=== PATIENT | female | born 1930 | race Caucasian/White ===

== ENCOUNTER 2019-10-17 20:50 | Inpatient (IN) | payer MEDICARE ==
[~2019-10-17] VITALS: Ht 157.5 cm; Wt 65.0 kg
--- NOTE | 2019-10-17 21:54 | NUR ---
PT AMBULATED WITH CANE FROM LOBBY TO ROOM WITHOUT DIFFICULTY. SHE WAS OFFERED A WHEELCHAIR BUT DECLINED.
[2019-10-17 22:26] LABS: BASOPHILS % (AUTO) 0.7 % (0-1); EOSINOPHILS # (AUTO) 0.1 X10'3 (0-0.9); EOSINOPHILS % (AUTO) 2.2 % (0-6); HEMATOCRIT 31.7 % (35.0-45.0); HEMOGLOBIN 10.6 g/dl (12.0-16.0); LYMPHOCYTES # (AUTO) 0.9 X10'3 (1.1-4.8); LYMPHOCYTES % (AUTO) 20.1 % (21-51); MEAN CORPUSCULAR HEMOGLOBIN 33.1 PG (27.0-31.0); MEAN CORPUSCULAR HGB CONC 33.5 g/dL (33.0-36.5); MEAN CORPUSCULAR VOLUME 98.8 FL (78-98); MEAN PLATELET VOLUME 7.8 FL (7.4-10.4); MONOCYTES # (AUTO) 0.4 X10'3 (0-0.9); MONOCYTES % (AUTO) 8.6 % (2-12); NEUTROPHILS # (AUTO) 3.2 X10'3 (1.8-7.7); NEUTROPHILS % (AUTO) 68.4 % (42-75); PLATELET COUNT 250 X10'3 (140-440); RED BLOOD COUNT 3.21 X10'6 (4.20-5.60); RED CELL DISTRIBUTION WIDTH 16.2 % (11.5-14.5); WHITE BLOOD COUNT 4.6 X10'3 (4.5-11.0)
[2019-10-17 22:31] LABS: ALANINE AMINOTRANSFERASE 23 U/L (12-78); ALBUMIN 3.8 G/DL (3.4-5.0); ALBUMIN/GLOBULIN RATIO 0.9 (1.1-1.5); ALKALINE PHOSPHATASE 82 IU/L (46-116); ANION GAP 9 (8-16); ASPARTATE AMINO TRANSFERASE 29 U/L (10-37); BILIRUBIN,TOTAL 0.5 MG/DL (0.1-1.0); BLOOD UREA NITROGEN 24 MG/DL (7-18); BUN/CREATININE RATIO 15.2 (6.6-38.0); CALCIUM 8.7 MG/DL (8.5-10.1); CHLORIDE 105 MMOL/L (99-107); CREATININE 1.58 MG/DL (0.40-0.90); GLUCOSE 94 MG/DL (70-104); POTASSIUM 3.7 MMOL/L (3.5-5.1); SODIUM 141 MMOL/L (135-145); TOTAL CARBON DIOXIDE 26.6 MMOL/L (24-32); TOTAL PROTEIN 8.2 G/DL (6.4-8.2); eGFR 31 ML/MIN
[2019-10-17] MEDS ORDERED: furosemide 10 MG/1 ML 10ml inj IV ONE (22:50)
[2019-10-17] MEDS ORDERED: ALLO100T PO (23:11)
[2019-10-17] MEDS ORDERED: METO-395 PO (23:11)
[2019-10-17] MEDS ORDERED: HYDR200T84 PO (23:11)
[2019-10-17] MEDS ORDERED: CALC0.2511 PO (23:11)
[2019-10-17] MEDS ORDERED: WARF-55 PO (23:11)
[2019-10-17] MEDS ORDERED: ASPI-1265 PO (23:11)
[2019-10-17] MEDS ORDERED: FURO-150 PO (23:11)
[2019-10-17] MEDS ORDERED: magnesium 4gm in 100ml NS 100 ML IV PRN (23:45)
[2019-10-17] MEDS ORDERED: mag hydrox/Alum hydrox/simeth 30ml oral suspension PO PRN (23:45)
[2019-10-17] MEDS ORDERED: bumetanide 0.25mg/ml 4ml vial IV ONE (23:45)
[2019-10-17] MEDS ORDERED: magnesium hydroxide 30ml (MOM) UD suspension PO PRN (23:45)
[2019-10-17] MEDS ORDERED: ondansetron/PF 4mg/2ml inj IV PRN (23:45)
[2019-10-17] MEDS ORDERED: acetaminophen 325mg tablet PO PRN (23:45)
[2019-10-17] MEDS ORDERED: potassium Cl 20 mEq SR tablet PO PRN (23:45)
[2019-10-17] MEDS ORDERED: potassium CL 10mEq/100ml bag 100 ML IV PRN ×2 (23:45)
[2019-10-17] MEDS ORDERED: magnesium Cl slow-release 64mg tablet PO PRN (23:45)
[2019-10-17] MEDS ORDERED: magnesium 2GM in 50ml NS 50 ML IV PRN (23:45)
[2019-10-17] MEDS ORDERED: BUMETANIDE 0.25 MG/ML IV ONE (23:55)
--- NOTE | 2019-10-18 00:25 | NUR ---
Patient in room ORTHO 4023. I have received report from Baljit RODRIGUEZ and had the opportunity to ask questions and assume patient care.
[2019-10-18 00:34] VITALS: BP 152/70
--- NOTE | 2019-10-18 00:37 | NUR ---
Problems reprioritized. Patient report given, questions answered & plan of care reviewed with Yaneth RODRIGUEZ.
--- NOTE | 2019-10-18 00:54 | NUR ---
The troponins were not drawn on the med Surg floor because no order from the admitting MD to continue the ED Troponins.
--- NOTE | 2019-10-18 01:48 | NUR ---
Pt arrived via gurney and one attendant, is admitted to Ortho floor, settled in and comfortable. Pt ambulates with personal cane and has been to bathroom x3 while admitting.
[2019-10-18 02:00] VITALS: BP 133/63
[2019-10-18 06:00] VITALS: BP 125/50
--- NOTE | 2019-10-18 06:21 | NUR ---
REPORT GIVEN TO JENNIFER GARDNER.
--- NOTE | 2019-10-18 06:25 | NUR ---
Patient in room ORTHO 4023. I have received report from CINDY RODRIGUEZ and had the opportunity to ask questions and assume patient care.
[2019-10-18 07:36] LABS: BASOPHILS % (AUTO) 0.6 % (0-1); EOSINOPHILS # (AUTO) 0.1 X10'3 (0-0.9); EOSINOPHILS % (AUTO) 1.8 % (0-6); HEMATOCRIT 29.7 % (35.0-45.0); HEMOGLOBIN 10.1 g/dl (12.0-16.0); LYMPHOCYTES # (AUTO) 0.6 X10'3 (1.1-4.8); LYMPHOCYTES % (AUTO) 13.8 % (21-51); MEAN CORPUSCULAR HEMOGLOBIN 33.8 PG (27.0-31.0); MEAN CORPUSCULAR HGB CONC 34.1 g/dL (33.0-36.5); MEAN CORPUSCULAR VOLUME 99.1 FL (78-98); MEAN PLATELET VOLUME 7.8 FL (7.4-10.4); MONOCYTES # (AUTO) 0.3 X10'3 (0-0.9); MONOCYTES % (AUTO) 8.2 % (2-12); NEUTROPHILS # (AUTO) 3.2 X10'3 (1.8-7.7); NEUTROPHILS % (AUTO) 75.6 % (42-75); PLATELET COUNT 225 X10'3 (140-440); RED CELL DISTRIBUTION WIDTH 15.8 % (11.5-14.5); WHITE BLOOD COUNT 4.2 X10'3 (4.5-11.0)
[2019-10-18 07:48] LABS: ALANINE AMINOTRANSFERASE 20 U/L (12-78); ALBUMIN 3.3 G/DL (3.4-5.0); ALBUMIN/GLOBULIN RATIO 0.8 (1.1-1.5); ALKALINE PHOSPHATASE 74 IU/L (46-116); ANION GAP 10 (8-16); ASPARTATE AMINO TRANSFERASE 25 U/L (10-37); BILIRUBIN,TOTAL 0.4 MG/DL (0.1-1.0); BLOOD UREA NITROGEN 24 MG/DL (7-18); BUN/CREATININE RATIO 17.1 (6.6-38.0); CALCIUM 8.4 MG/DL (8.5-10.1); CHLORIDE 106 MMOL/L (99-107); GLUCOSE 100 MG/DL (70-104); MAGNESIUM 2.1 MG/DL (1.5-2.4); POTASSIUM 3.1 MMOL/L (3.5-5.1); SODIUM 144 MMOL/L (135-145); TOTAL CARBON DIOXIDE 28.2 MMOL/L (24-32); TOTAL PROTEIN 7.5 G/DL (6.4-8.2); eGFR 36 ML/MIN
[2019-10-18] MEDS ORDERED: BUMETANIDE 0.25 MG/ML IV SCH (08:00)
[2019-10-18] MEDS ORDERED: warfarin 5mg tablet PO SCH (08:00)
[2019-10-18] MEDS ORDERED: hydroxychloroquine 200mg tablet PO SCH (08:00)
[2019-10-18] MEDS: K and/or MAG REPLACEMENT MC SCH ×2 (08:00→20:00)
[2019-10-18] MEDS: metoprolol succinate 25mg (24-HOUR) SR. Tablet PO SCH ×2 (09:16→21:02)
[2019-10-18] MEDS: calcitriol 0.25mcg capsule PO SCH (09:16)
[2019-10-18] MEDS: aspirin 81mg tab.chew PO SCH (09:16)
[2019-10-18] MEDS: allopurinol 300 MG tablet PO SCH (09:16)
[2019-10-18] MEDS: potassium Cl 20 mEq SR tablet PO PRN ×4 (09:17→21:13)
[2019-10-18 10:00] VITALS: BP 120/63
[2019-10-18] MEDS ORDERED: BUMETANIDE 0.25 MG/ML IV ONE (10:15)
[2019-10-18] MEDS: hydroxychloroquine 200mg tablet PO SCH ×2 (11:58→21:03)
[2019-10-18 18:00] VITALS: BP 113/55
--- NOTE | 2019-10-18 18:11 | NUR ---
Problems reprioritized. Patient report given, questions answered & plan of care reviewed with Kaitlyn RODRIGUEZ .
--- NOTE | 2019-10-18 18:15 | NUR ---
Patient in room ORTHO 4023. I have received report from Zaria RODRIGUEZ and had the opportunity to ask questions and assume patient care.
[2019-10-18] MEDS ORDERED: warfarin 5mg tablet PO ONE (21:00)
[2019-10-18 22:00] VITALS: BP 110/52
--- NOTE | 2019-10-19 01:30 | NUR ---
24 hr tele removed
[2019-10-19 06:00] VITALS: BP 122/62
--- NOTE | 2019-10-19 06:15 | NUR ---
Problems reprioritized. Patient report given, questions answered & plan of care reviewed with Yojana RODRIGUEZ.
[2019-10-19 07:26] LABS: BASOPHILS % (AUTO) 0.8 % (0-1); EOSINOPHILS # (AUTO) 0.1 X10'3 (0-0.9); EOSINOPHILS % (AUTO) 3.3 % (0-6); HEMATOCRIT 28.1 % (35.0-45.0); HEMOGLOBIN 9.5 g/dl (12.0-16.0); LYMPHOCYTES # (AUTO) 0.9 X10'3 (1.1-4.8); LYMPHOCYTES % (AUTO) 25.1 % (21-51); MEAN CORPUSCULAR HEMOGLOBIN 33.4 PG (27.0-31.0); MEAN CORPUSCULAR HGB CONC 33.8 g/dL (33.0-36.5); MEAN CORPUSCULAR VOLUME 99.1 FL (78-98); MONOCYTES # (AUTO) 0.4 X10'3 (0-0.9); MONOCYTES % (AUTO) 11.8 % (2-12); PLATELET COUNT 211 X10'3 (140-440); RED BLOOD COUNT 2.84 X10'6 (4.20-5.60); RED CELL DISTRIBUTION WIDTH 15.7 % (11.5-14.5); WHITE BLOOD COUNT 3.5 X10'3 (4.5-11.0)
[2019-10-19 07:51] LABS: ALANINE AMINOTRANSFERASE 19 U/L (12-78); ALBUMIN/GLOBULIN RATIO 0.8 (1.1-1.5); ALKALINE PHOSPHATASE 60 IU/L (46-116); ANION GAP 6 (8-16); ASPARTATE AMINO TRANSFERASE 25 U/L (10-37); BILIRUBIN,TOTAL 0.4 MG/DL (0.1-1.0); BLOOD UREA NITROGEN 29 MG/DL (7-18); BUN/CREATININE RATIO 19.1 (6.6-38.0); CALCIUM 8.3 MG/DL (8.5-10.1); CHLORIDE 108 MMOL/L (99-107); CREATININE 1.52 MG/DL (0.40-0.90); GLUCOSE 81 MG/DL (70-104); MAGNESIUM 2.1 MG/DL (1.5-2.4); POTASSIUM 4.7 MMOL/L (3.5-5.1); SODIUM 141 MMOL/L (135-145); TOTAL CARBON DIOXIDE 27.4 MMOL/L (24-32); TOTAL PROTEIN 6.8 G/DL (6.4-8.2); eGFR 32 ML/MIN
[2019-10-19] MEDS: K and/or MAG REPLACEMENT MC SCH ×2 (08:00→20:00)
[2019-10-19] MEDS: allopurinol 300 MG tablet PO SCH (08:00)
[2019-10-19] MEDS: aspirin 81mg tab.chew PO SCH (08:00)
[2019-10-19] MEDS: hydroxychloroquine 200mg tablet PO SCH ×2 (08:00→21:42)
[2019-10-19] MEDS: calcitriol 0.25mcg capsule PO SCH (08:00)
[2019-10-19] MEDS: metoprolol succinate 25mg (24-HOUR) SR. Tablet PO SCH ×2 (08:01→21:47)
[2019-10-19] MEDS: BUMETANIDE 0.25 MG/ML IV SCH (09:16)
[2019-10-19 10:00] VITALS: BP 111/53
[2019-10-19 18:00] VITALS: BP 112/44
--- NOTE | 2019-10-19 18:15 | NUR ---
Patient in room ORTHO 4023. I have received report from Isabelle RODRIGUEZ and had the opportunity to ask questions and assume patient care.
--- NOTE | 2019-10-19 18:17 | NUR ---
Problems reprioritized. Patient report given, questions answered & plan of care reviewed with Ilir RODRIGUEZ.
[2019-10-19] MEDS ORDERED: warfarin 5mg tablet PO ONE (21:00)
[2019-10-19 22:00] VITALS: BP 128/55
[2019-10-20 06:00] VITALS: BP 106/53
--- NOTE | 2019-10-20 06:29 | NUR ---
Problems reprioritized. Patient report given, questions answered & plan of care reviewed with Armida RODRIGUEZ.
[2019-10-20 06:34] LABS: BASOPHILS % (AUTO) 0.9 % (0-1); EOSINOPHILS # (AUTO) 0.1 X10'3 (0-0.9); EOSINOPHILS % (AUTO) 3.8 % (0-6); HEMATOCRIT 28.1 % (35.0-45.0); HEMOGLOBIN 9.6 g/dl (12.0-16.0); LYMPHOCYTES # (AUTO) 0.9 X10'3 (1.1-4.8); LYMPHOCYTES % (AUTO) 25.4 % (21-51); MEAN CORPUSCULAR HEMOGLOBIN 34.2 PG (27.0-31.0); MEAN CORPUSCULAR HGB CONC 34.2 g/dL (33.0-36.5); MONOCYTES # (AUTO) 0.4 X10'3 (0-0.9); MONOCYTES % (AUTO) 10.7 % (2-12); NEUTROPHILS # (AUTO) 2.1 X10'3 (1.8-7.7); NEUTROPHILS % (AUTO) 59.2 % (42-75); PLATELET COUNT 189 X10'3 (140-440); RED BLOOD COUNT 2.81 X10'6 (4.20-5.60); RED CELL DISTRIBUTION WIDTH 15.9 % (11.5-14.5); WHITE BLOOD COUNT 3.6 X10'3 (4.5-11.0)
[2019-10-20 06:54] LABS: ALANINE AMINOTRANSFERASE 19 U/L (12-78); ALBUMIN/GLOBULIN RATIO 0.9 (1.1-1.5); ALKALINE PHOSPHATASE 63 IU/L (46-116); ANION GAP 8 (8-16); ASPARTATE AMINO TRANSFERASE 24 U/L (10-37); BILIRUBIN,TOTAL 0.4 MG/DL (0.1-1.0); BLOOD UREA NITROGEN 33 MG/DL (7-18); BUN/CREATININE RATIO 25.2 (6.6-38.0); CALCIUM 8.7 MG/DL (8.5-10.1); CHLORIDE 107 MMOL/L (99-107); CREATININE 1.31 MG/DL (0.40-0.90); GLUCOSE 78 MG/DL (70-104); POTASSIUM 4.3 MMOL/L (3.5-5.1); SODIUM 140 MMOL/L (135-145); TOTAL CARBON DIOXIDE 25.2 MMOL/L (24-32); TOTAL PROTEIN 6.5 G/DL (6.4-8.2); eGFR 38 ML/MIN
[2019-10-20] MEDS: hydroxychloroquine 200mg tablet PO SCH (07:43)
[2019-10-20] MEDS: allopurinol 300 MG tablet PO SCH (07:43)
[2019-10-20] MEDS: calcitriol 0.25mcg capsule PO SCH (07:44)
[2019-10-20] MEDS: aspirin 81mg tab.chew PO SCH (07:44)
[2019-10-20] MEDS: metoprolol succinate 25mg (24-HOUR) SR. Tablet PO SCH (07:44)
[2019-10-20] MEDS: BUMETANIDE 0.25 MG/ML IV SCH (07:49)
[2019-10-20] MEDS: K and/or MAG REPLACEMENT MC SCH (08:00)
[2019-10-20 10:00] VITALS: BP 132/62
[2019-10-20] MEDS ORDERED: BUME0.5T6 PO (10:16)
--- NOTE | 2019-10-20 11:16 | NUR ---
Discharge instructions given to patient. PIV removed, cannula intact. Prescription called to [facility] on [address]. Patient has an appointment with dental office assistant on .
[2019-10-20] MEDS ORDERED: warfarin 3mg tablet PO ONE (21:00)
--- NOTE | 2019-10-23 13:04 | NUR ---
Case Management DC follow up: Spoke to pt via telephone. s/p: SOB, CHF Reports: "doing great, I had excellent care" Denies: worsening/acute SOB, resp distress, acute/persistent CP, CAR[place]O, blurry vision, N/V, emergent general pain, abd tenderness or distention, vertigo, syncope, fever, unexplained bruising, bleeding. Verbalizes understanding of s/s that would warrant 9-11/ER visit for further evaluation. Verbalizes understanding of new Rx/Bumetanide r/t edema & why prescribed; resume current Rx, taking as ordered, no ase noted r/t polypharmacy. Acknowledges need to follow-up/keep appts w/PCP/Dunia Salgado, will call to schedule, Lianna/10/25/19. Questions answered, needs met at [place]. No further questions at this time.
== END 2019-10-20 11:30 | disposition home or self-care (01) | DRG 292 ==
LOC: ER 20:51 → ED HOLD 23:41 → UNDOADMIN 10-18 00:17 → ED HOLD 10-18 00:30 → ORTHO 4S 10-18 00:30
PROVIDERS: ADMIT Internal Medicine; ATTEND Family Medicine
DX: I50.33 Acute on chronic diastolic (congestive) heart failure (principal); I48.20 Chronic atrial fibrillation, unspecified; J44.9 Chronic obstructive pulmonary disease, unspecified; Z88.0 Allergy status to penicillin; D50.9 Iron deficiency anemia, unspecified; I25.10 Atherosclerotic heart disease of native coronary artery without angina pectoris; Z95.5 Presence of coronary angioplasty implant and graft; Z90.49 Acquired absence of other specified parts of digestive tract; Z85.038 Personal history of other malignant neoplasm of large intestine; Z90.710 Acquired absence of both cervix and uterus; M06.9 Rheumatoid arthritis, unspecified; E87.6 Hypokalemia; Z66 Do not resuscitate; N18.9 Chronic kidney disease, unspecified; Z95.0 Presence of cardiac pacemaker
CPT/HCPCS: 36415; 71045; 80053; 83735; 83880; 84484; 85025; 85610; 87081; 93005; 93306; 96374; 96375; 97112; 97116; 97161; 97530; 99285; G0378; J1940

== ENCOUNTER 2019-12-14 16:51 | Inpatient (IN) | payer MEDICARE ==
[~2019-12-14] VITALS: Ht 154.9 cm; Wt 71.0 kg
[~2019-12-14 16:51] MED LIST: ALLO100T PO; ASPI-1265 PO; BUME0.5T6 PO; CALC0.2511 PO; HYDR200T84 PO; METO-395 PO; WARF-55 PO
[2019-12-14 18:01] LABS: BASOPHILS % (AUTO) 0.6 % (0-1); EOSINOPHILS # (AUTO) 0.1 X10'3 (0-0.9); EOSINOPHILS % (AUTO) 1.8 % (0-6); HEMATOCRIT 28.1 % (35.0-45.0); HEMOGLOBIN 9.2 g/dl (12.0-16.0); LYMPHOCYTES # (AUTO) 0.8 X10'3 (1.1-4.8); LYMPHOCYTES % (AUTO) 16.9 % (21-51); MEAN CORPUSCULAR HGB CONC 32.8 g/dL (33.0-36.5); MEAN CORPUSCULAR VOLUME 97.4 FL (78-98); MEAN PLATELET VOLUME 8.3 FL (7.4-10.4); MONOCYTES # (AUTO) 0.4 X10'3 (0-0.9); MONOCYTES % (AUTO) 8.7 % (2-12); NEUTROPHILS # (AUTO) 3.2 X10'3 (1.8-7.7); PLATELET COUNT 170 X10'3 (140-440); RED BLOOD COUNT 2.88 X10'6 (4.20-5.60); RED CELL DISTRIBUTION WIDTH 18.8 % (11.5-14.5); WHITE BLOOD COUNT 4.5 X10'3 (4.5-11.0)
[2019-12-14 18:10] LABS: ALANINE AMINOTRANSFERASE 16 U/L (12-78); ALBUMIN 3.3 G/DL (3.4-5.0); ALBUMIN/GLOBULIN RATIO 0.8 (1.1-1.5); ALKALINE PHOSPHATASE 203 IU/L (46-116); ANION GAP 6 (8-16); ASPARTATE AMINO TRANSFERASE 29 U/L (10-37); BLOOD UREA NITROGEN 20 MG/DL (7-18); BUN/CREATININE RATIO 13.6 (6.6-38.0); CALCIUM 8.4 MG/DL (8.5-10.1); CHLORIDE 100 MMOL/L (99-107); CREATININE 1.47 MG/DL (0.40-0.90); GLUCOSE 111 MG/DL (70-104); POTASSIUM 3.3 MMOL/L (3.5-5.1); SODIUM 135 MMOL/L (135-145); TOTAL CARBON DIOXIDE 28.7 MMOL/L (24-32); TOTAL PROTEIN 7.7 G/DL (6.4-8.2); eGFR 34 ML/MIN
[2019-12-14] MEDS ORDERED: BUME0.5T6 PO (18:45)
[2019-12-14] MEDS ORDERED: furosemide 10 MG/1 ML 10ml inj IV ONE (18:50)
[2019-12-14] MEDS ORDERED: AMLO5TAB95 PO (18:53)
[2019-12-14] MEDS ORDERED: mag hydrox/Alum hydrox/simeth 30ml oral suspension PO PRN (19:45)
[2019-12-14] MEDS ORDERED: magnesium 4gm in 100ml NS 100 ML IV PRN (19:45)
[2019-12-14] MEDS ORDERED: ondansetron/PF 4mg/2ml inj IV PRN (19:45)
[2019-12-14] MEDS ORDERED: potassium Cl 20 mEq SR tablet PO PRN (19:45)
[2019-12-14] MEDS ORDERED: magnesium 2GM in 50ml NS 50 ML IV PRN (19:45)
[2019-12-14] MEDS ORDERED: acetaminophen 325mg tablet PO PRN ×2 (19:45)
[2019-12-14] MEDS ORDERED: magnesium Cl slow-release 64mg tablet PO PRN (19:45)
[2019-12-14] MEDS ORDERED: docusate sod 100mg capsule PO PRN (19:45)
[2019-12-14] MEDS ORDERED: potassium CL 10mEq/100ml bag 100 ML IV PRN ×2 (19:45)
[2019-12-14] MEDS ORDERED: bumetanide 1mg tablet PO SCH ×2 (20:00)
[2019-12-14] MEDS: K and/or MAG REPLACEMENT MC SCH (20:00)
[2019-12-14] MEDS: metoprolol succinate 25mg (24-HOUR) SR. Tablet PO SCH (20:39)
[2019-12-14] MEDS: potassium Cl 20 mEq SR tablet PO PRN (20:39)
[2019-12-14] MEDS: HYDROcodone/acetaminophen 10/325mg tab PO PRN (20:41)
[2019-12-14] MEDS ORDERED: warfarin 5mg tablet PO ONE (21:00)
[2019-12-14 22:00] VITALS: BP 122/63
--- NOTE | 2019-12-14 23:13 | NUR ---
Patient arrived on the floor at 2200 from ER. Alert, oriented x4. Not at any distress.
[2019-12-15] MEDS: HYDROcodone/acetaminophen 10/325mg tab PO PRN ×3 (01:42→23:18)
[2019-12-15 02:00] VITALS: BP 107/56
[2019-12-15 05:24] LABS: BASOPHILS % (AUTO) 0.9 % (0-1); EOSINOPHILS # (AUTO) 0.1 X10'3 (0-0.9); EOSINOPHILS % (AUTO) 2.8 % (0-6); HEMATOCRIT 24.5 % (35.0-45.0); HEMOGLOBIN 8.1 g/dl (12.0-16.0); LYMPHOCYTES # (AUTO) 0.7 X10'3 (1.1-4.8); LYMPHOCYTES % (AUTO) 22.1 % (21-51); MEAN CORPUSCULAR VOLUME 96.9 FL (78-98); MEAN PLATELET VOLUME 8.7 FL (7.4-10.4); MONOCYTES # (AUTO) 0.4 X10'3 (0-0.9); MONOCYTES % (AUTO) 10.9 % (2-12); NEUTROPHILS # (AUTO) 2.1 X10'3 (1.8-7.7); NEUTROPHILS % (AUTO) 63.3 % (42-75); PLATELET COUNT 141 X10'3 (140-440); RED BLOOD COUNT 2.53 X10'6 (4.20-5.60); WHITE BLOOD COUNT 3.3 X10'3 (4.5-11.0)
[2019-12-15 05:33] LABS: ALANINE AMINOTRANSFERASE 14 U/L (12-78); ALBUMIN 2.8 G/DL (3.4-5.0); ALBUMIN/GLOBULIN RATIO 0.7 (1.1-1.5); ALKALINE PHOSPHATASE 154 IU/L (46-116); ANION GAP 6 (8-16); ASPARTATE AMINO TRANSFERASE 27 U/L (10-37); BILIRUBIN,TOTAL 0.9 MG/DL (0.1-1.0); BLOOD UREA NITROGEN 18 MG/DL (7-18); BUN/CREATININE RATIO 15.5 (6.6-38.0); CALCIUM 7.9 MG/DL (8.5-10.1); CHLORIDE 104 MMOL/L (99-107); CREATININE 1.16 MG/DL (0.40-0.90); GLUCOSE 82 MG/DL (70-104); MAGNESIUM 1.9 MG/DL (1.5-2.4); POTASSIUM 3.4 MMOL/L (3.5-5.1); SODIUM 139 MMOL/L (135-145); TOTAL CARBON DIOXIDE 28.8 MMOL/L (24-32); TOTAL PROTEIN 6.6 G/DL (6.4-8.2); eGFR 44 ML/MIN
--- NOTE | 2019-12-15 06:12 | NUR ---
Problems reprioritized. Patient report given Dian STEWART, questions answered & plan of care reviewed with .
[2019-12-15 06:15] LABS: ACANTHOCYTES FEW; ANISOCYTOSIS 2+; ELLIPTOCYTES FEW; PLATELET ESTIMATE NORMAL; POLYCHROMASIA FEW
--- NOTE | 2019-12-15 06:30 | NUR ---
Patient in room PCU 3026. I have received report from Azul RODRIGUEZ and had the opportunity to ask questions and assume patient care.
[2019-12-15 07:00] VITALS: BP 110/54
[2019-12-15] MEDS: furosemide 20 MG/2 ML vial IV SCH ×2 (07:59→21:14)
[2019-12-15] MEDS: aspirin 81mg tab.chew PO SCH (07:59)
[2019-12-15] MEDS: metoprolol succinate 25mg (24-HOUR) SR. Tablet PO SCH ×2 (07:59→21:14)
[2019-12-15] MEDS: potassium Cl 20 mEq SR tablet PO PRN ×3 (07:59→21:13)
[2019-12-15] MEDS ORDERED: hydroxychloroquine 200mg tablet PO SCH (08:00)
[2019-12-15] MEDS: calcitriol 0.25mcg capsule PO SCH (08:00)
[2019-12-15] MEDS: allopurinol 300 MG tablet PO SCH (08:00)
[2019-12-15] MEDS: K and/or MAG REPLACEMENT MC SCH ×2 (08:19→20:00)
[2019-12-15 09:15] LABS: TROPONIN I < 0.04 NG/ML (0.0-0.05)
--- NOTE | 2019-12-15 10:05 | NUR ---
Dr. Conway at bedside with patient and nurse. New orders PT eval and Treat. No fluid restrictions at this time. Will continue to monitor.
[2019-12-15 11:00] VITALS: BP 108/56
[2019-12-15 15:00] VITALS: BP 112/50
--- NOTE | 2019-12-15 18:33 | NUR ---
Problems reprioritized. Patient report given, questions answered & plan of care reviewed with Rosalie RODRIGUEZ.
[2019-12-15 19:00] VITALS: BP 124/61
[2019-12-15] MEDS ORDERED: warfarin 5mg tablet PO ONE (21:00)
[2019-12-15 23:00] VITALS: BP 132/57
[2019-12-16 04:00] VITALS: BP 94/47
[2019-12-16 06:00] VITALS: BP 136/73
[2019-12-16 06:06] LABS: BASOPHILS % (AUTO) 0.8 % (0-1); EOSINOPHILS # (AUTO) 0.1 X10'3 (0-0.9); EOSINOPHILS % (AUTO) 1.8 % (0-6); HEMATOCRIT 26.8 % (35.0-45.0); HEMOGLOBIN 8.7 g/dl (12.0-16.0); LYMPHOCYTES # (AUTO) 1.1 X10'3 (1.1-4.8); LYMPHOCYTES % (AUTO) 23.7 % (21-51); MEAN CORPUSCULAR HEMOGLOBIN 31.6 PG (27.0-31.0); MEAN CORPUSCULAR HGB CONC 32.4 g/dL (33.0-36.5); MEAN CORPUSCULAR VOLUME 97.5 FL (78-98); MEAN PLATELET VOLUME 9.1 FL (7.4-10.4); MONOCYTES # (AUTO) 0.4 X10'3 (0-0.9); MONOCYTES % (AUTO) 9.6 % (2-12); NEUTROPHILS # (AUTO) 2.9 X10'3 (1.8-7.7); NEUTROPHILS % (AUTO) 64.1 % (42-75); PLATELET COUNT 157 X10'3 (140-440); RED BLOOD COUNT 2.75 X10'6 (4.20-5.60); RED CELL DISTRIBUTION WIDTH 18.8 % (11.5-14.5); WHITE BLOOD COUNT 4.6 X10'3 (4.5-11.0)
--- NOTE | 2019-12-16 06:31 | NUR ---
Patient in room PCU 3026. I have received report from JENNIFER CHOWDHURY and had the opportunity to ask questions and assume patient care.
[2019-12-16 06:55] LABS: ALANINE AMINOTRANSFERASE 16 U/L (12-78); ALBUMIN/GLOBULIN RATIO 0.8 (1.1-1.5); ALKALINE PHOSPHATASE 158 IU/L (46-116); ANION GAP 7 (8-16); ASPARTATE AMINO TRANSFERASE 26 U/L (10-37); BILIRUBIN,TOTAL 0.9 MG/DL (0.1-1.0); BLOOD UREA NITROGEN 21 MG/DL (7-18); BUN/CREATININE RATIO 18.9 (6.6-38.0); CALCIUM 8.3 MG/DL (8.5-10.1); CHLORIDE 103 MMOL/L (99-107); CREATININE 1.11 MG/DL (0.40-0.90); GLUCOSE 87 MG/DL (70-104); POTASSIUM 4.4 MMOL/L (3.5-5.1); SODIUM 137 MMOL/L (135-145); TOTAL CARBON DIOXIDE 26.8 MMOL/L (24-32); eGFR 46 ML/MIN
[2019-12-16 07:04] LABS: ANISOCYTOSIS 2+; PLATELET ESTIMATE NORMAL; POLYCHROMASIA 1+
[2019-12-16 07:05] LABS: ACANTHOCYTES FEW; ELLIPTOCYTES FEW; SCHISTOCYTES FEW
[2019-12-16] MEDS: K and/or MAG REPLACEMENT MC SCH ×2 (08:00→20:00)
[2019-12-16] MEDS: aspirin 81mg tab.chew PO SCH (08:23)
[2019-12-16] MEDS: furosemide 20 MG/2 ML vial IV SCH ×2 (08:23→19:57)
[2019-12-16] MEDS: calcitriol 0.25mcg capsule PO SCH (08:23)
[2019-12-16] MEDS: metoprolol succinate 25mg (24-HOUR) SR. Tablet PO SCH ×2 (08:24→19:57)
[2019-12-16] MEDS: hydroxychloroquine 200mg tablet PO SCH (08:24)
[2019-12-16] MEDS: allopurinol 300 MG tablet PO SCH (08:25)
[2019-12-16] MEDS: HYDROcodone/acetaminophen 5mg/325mg tablet PO PRN ×2 (09:17→20:09)
[2019-12-16 11:00] VITALS: BP 117/57
[2019-12-16 15:00] VITALS: BP 108/48
--- NOTE | 2019-12-16 17:20 | NUR ---
DISCUSSED PACHECO CATHETER WITH PT, POSSIBLE HOME TOMORROW PER DR. GAYTAN. PACHECO CATH DC'D PER PROTOCOL. WELL EMMETT. ASSIST TO BSC FOR BM. INSTRUCTED TO CALL FOR ASSISTANCE WHEN FINISHED, VERBALIZED UNDERSTANDING.
[2019-12-16 18:00] VITALS: BP 117/54
--- NOTE | 2019-12-16 18:39 | NUR ---
Problems reprioritized. Patient report given, questions answered & plan of care reviewed with JENNIFER SUÁREZ.
--- NOTE | 2019-12-16 18:47 | NUR ---
Patient in room PCU 3026. I have received report from JENNIFER VALDOVINOS and had the opportunity to ask questions and assume patient care.
[2019-12-16] MEDS ORDERED: warfarin 5mg tablet PO ONE (21:00)
[2019-12-16 22:00] VITALS: BP_SYST 107; BP_SYST 117; BP_DIAS 54; BP_DIAS 56
[2019-12-17 02:00] VITALS: BP 127/60
[2019-12-17 04:55] LABS: BASOPHILS % (AUTO) 0.5 % (0-1); EOSINOPHILS # (AUTO) 0.1 X10'3 (0-0.9); EOSINOPHILS % (AUTO) 2.2 % (0-6); HEMOGLOBIN 8.5 g/dl (12.0-16.0); LYMPHOCYTES # (AUTO) 0.9 X10'3 (1.1-4.8); LYMPHOCYTES % (AUTO) 20.9 % (21-51); MEAN CORPUSCULAR HEMOGLOBIN 31.7 PG (27.0-31.0); MEAN CORPUSCULAR HGB CONC 32.7 g/dL (33.0-36.5); MEAN CORPUSCULAR VOLUME 96.8 FL (78-98); MEAN PLATELET VOLUME 8.4 FL (7.4-10.4); MONOCYTES # (AUTO) 0.4 X10'3 (0-0.9); MONOCYTES % (AUTO) 9.9 % (2-12); NEUTROPHILS % (AUTO) 66.5 % (42-75); PLATELET COUNT 153 X10'3 (140-440); RED BLOOD COUNT 2.69 X10'6 (4.20-5.60); RED CELL DISTRIBUTION WIDTH 18.4 % (11.5-14.5); WHITE BLOOD COUNT 4.5 X10'3 (4.5-11.0)
[2019-12-17 05:12] LABS: ALANINE AMINOTRANSFERASE 13 U/L (12-78); ALBUMIN 2.8 G/DL (3.4-5.0); ALBUMIN/GLOBULIN RATIO 0.7 (1.1-1.5); ALKALINE PHOSPHATASE 152 IU/L (46-116); ANION GAP 6 (8-16); ASPARTATE AMINO TRANSFERASE 25 U/L (10-37); BLOOD UREA NITROGEN 26 MG/DL (7-18); BUN/CREATININE RATIO 24.1 (6.6-38.0); CALCIUM 8.3 MG/DL (8.5-10.1); CHLORIDE 100 MMOL/L (99-107); CREATININE 1.08 MG/DL (0.40-0.90); GLUCOSE 93 MG/DL (70-104); MAGNESIUM 1.9 MG/DL (1.5-2.4); POTASSIUM 4.2 MMOL/L (3.5-5.1); SODIUM 135 MMOL/L (135-145); TOTAL PROTEIN 6.7 G/DL (6.4-8.2); eGFR 48 ML/MIN
[2019-12-17 06:00] VITALS: BP 148/62
--- NOTE | 2019-12-17 06:30 | NUR ---
Patient in room PCU 3026. I have received report from lillian chung and had the opportunity to ask questions and assume patient care.
--- NOTE | 2019-12-17 06:32 | NUR ---
Problems reprioritized. Patient report given, questions answered & plan of care reviewed with JENNIFER VALDOVINOS.
[2019-12-17] MEDS: allopurinol 300 MG tablet PO SCH (07:53)
[2019-12-17] MEDS: aspirin 81mg tab.chew PO SCH (07:53)
[2019-12-17] MEDS: calcitriol 0.25mcg capsule PO SCH (07:53)
[2019-12-17] MEDS: metoprolol succinate 25mg (24-HOUR) SR. Tablet PO SCH (07:53)
[2019-12-17] MEDS: hydroxychloroquine 200mg tablet PO SCH (07:53)
[2019-12-17] MEDS: furosemide 20 MG/2 ML vial IV SCH (07:53)
[2019-12-17] MEDS: K and/or MAG REPLACEMENT MC SCH (08:00)
[2019-12-17] MEDS ORDERED: FURO-150 PO (08:32)
--- NOTE | 2019-12-17 09:25 | NUR ---
O2 Sat at rest on room air:__87_% If below 89%: Recovery O2 Sat at rest on _1.5__LPM:__93_%:___% via NC (mask/nasal cannula, etc..) No further documentation is necessary. If O2 Sat did not drop below 89% on room air,ambulate patient on room air. O2 Sat while ambulating on room air:___% Recovery O2 Sat while ambulating on ___LPM:___% No further documentation is necessary. If patient does not drop below 89% while ambulating, he/she does not qualify for home O2.
[2019-12-17 11:00] VITALS: BP 118/57
[2019-12-17] MEDS ORDERED: warfarin 5mg tablet PO ONE (21:00)
--- NOTE | 2019-12-18 15:46 | NUR ---
Case management DC follow up: LM/VM re post DC status, questions, concerns
== END 2019-12-17 14:25 | disposition home health service (06) | DRG 291 ==
LOC: ER 16:52 → ED HOLD 19:42 → PCU 3S 22:00
PROVIDERS: ADMIT Family Medicine; ATTEND Internal Medicine
DX: I50.813 Acute on chronic right heart failure (principal); J96.01 Acute respiratory failure with hypoxia; I48.20 Chronic atrial fibrillation, unspecified; N17.9 Acute kidney failure, unspecified; M06.9 Rheumatoid arthritis, unspecified; N18.3 Chronic kidney disease, stage 3 (moderate); I50.33 Acute on chronic diastolic (congestive) heart failure; D63.8 Anemia in other chronic diseases classified elsewhere; I27.20 Pulmonary hypertension, unspecified; J44.9 Chronic obstructive pulmonary disease, unspecified; I48.0 Paroxysmal atrial fibrillation; Z88.0 Allergy status to penicillin; Z85.038 Personal history of other malignant neoplasm of large intestine; Z95.0 Presence of cardiac pacemaker; Z90.710 Acquired absence of both cervix and uterus; Z82.49 Family history of ischemic heart disease and other diseases of the circulatory system; Z80.9 Family history of malignant neoplasm, unspecified; Z87.891 Personal history of nicotine dependence; Z79.01 Long term (current) use of anticoagulants; Z79.82 Long term (current) use of aspirin; Z79.899 Other long term (current) drug therapy
CPT/HCPCS: 36415; 71045; 80053; 83735; 83880; 84484; 85025; 85610; 87081; 93005; 96374; 97110; 97161; 97530; 99285; G0378; J1940

== ENCOUNTER 2020-12-16 06:04 | Day surgery (SDC) | payer MEDICARE ==
[2020-12-15 10:28] LABS: ALBUMIN 3.9 G/DL (3.4-5.0); ANION GAP 8 (8-16); BLOOD UREA NITROGEN 32 MG/DL (7-18); BUN/CREATININE RATIO 24.4 (6.6-38.0); CALCIUM 8.2 MG/DL (8.5-10.1); CHLORIDE 105 MMOL/L (99-107); CREATININE 1.31 MG/DL (0.40-0.90); GLUCOSE 87 MG/DL (70-104); POTASSIUM 3.4 MMOL/L (3.5-5.1); SODIUM 143 MMOL/L (135-145); TOTAL CARBON DIOXIDE 30.5 MMOL/L (24-32); eGFR 38 ML/MIN
[2020-12-15 10:32] LABS: PARTIAL THROMBOPLASTIN TIME 31 SECONDS (22-32)
[2020-12-15 10:36] LABS: BASOPHILS % (AUTO) 0.4 % (0-1); EOSINOPHILS # (AUTO) 0.1 X10'3 (0-0.9); EOSINOPHILS % (AUTO) 1.5 % (0-6); HEMATOCRIT 35.6 % (35.0-45.0); HEMOGLOBIN 11.8 g/dl (12.0-16.0); LYMPHOCYTES # (AUTO) 0.9 X10'3 (1.1-4.8); LYMPHOCYTES % (AUTO) 20.6 % (21-51); MEAN CORPUSCULAR HGB CONC 33.1 g/dL (33.0-36.5); MEAN CORPUSCULAR VOLUME 96.9 FL (78-98); MEAN PLATELET VOLUME 9.1 FL (7.4-10.4); MONOCYTES # (AUTO) 0.4 X10'3 (0-0.9); MONOCYTES % (AUTO) 9.7 % (2-12); NEUTROPHILS # (AUTO) 3.1 X10'3 (1.8-7.7); NEUTROPHILS % (AUTO) 67.8 % (42-75); PLATELET COUNT 138 X10'3 (140-440); RED BLOOD COUNT 3.68 X10'6 (4.20-5.60); RED CELL DISTRIBUTION WIDTH 14.6 % (11.5-14.5); WHITE BLOOD COUNT 4.5 X10'3 (4.5-11.0)
[2020-12-16] VITALS (10 sets, daily range): BP systolic 98–132; BP diastolic 42–62
[~2020-12-16] VITALS: Ht 154.9 cm; Wt 60.2 kg
[~2020-12-16 06:04] MED LIST changes: +AMLO5TAB95 PO; -BUME0.5T6 PO; +FURO-150 PO
[2020-12-16] MEDS ORDERED: METO25TA6 PO (06:32)
[2020-12-16] MEDS ORDERED: ROPI0.2540 PO (06:32)
[2020-12-16] MEDS ORDERED: ATOR20TA66 PO (06:32)
[2020-12-16] MEDS ORDERED: FURO20TA4 PO (06:32)
[2020-12-16] MEDS ORDERED: POTA20TA19 PO (06:32)
[2020-12-16] MEDS ORDERED: FLAX10007 PO (06:36)
[2020-12-16] MEDS ORDERED: FERR-119 PO (06:36)
[2020-12-16] MEDS ORDERED: CALC600T22 PO (06:36)
[2020-12-16] MEDS ORDERED: ASCO500C12 PO (06:36)
[2020-12-16] MEDS ORDERED: CHOL100046 PO (06:36)
[2020-12-16] MEDS ORDERED: CLINDAMYCIN/D5W 900mg/50ml 50 ML IV ONE (06:40)
[2020-12-16] MEDS ORDERED: normal saline 1000ml 1,000 ML IV SCH (07:05)
[2020-12-16] MEDS ORDERED: midazolam 1 mg/ML 2ml injection ONE (07:23)
[2020-12-16] MEDS ORDERED: fentaNYL/PF 50MCG/1 ML 2ML syringe ONE (07:23)
[2020-12-16] MEDS ORDERED: LIDOcaine 1% W/epiNEPHrine 1:100,000 20ml vial ONE (07:23)
[2020-12-16] MEDS ORDERED: ceFAZolin 1000mg inj ONE (07:23)
[2020-12-16] MEDS ORDERED: clindamycin phosphate 150mg/ml inj. ONE (07:26)
[2020-12-16] MEDS ORDERED: clindamycin 600mg/D5W 50ml 50 ML IV ONE (08:00)
[2020-12-16] MEDS ORDERED: HYDROcodone/acetaminophen 10/325mg tab PO PRN (09:15)
[2020-12-16] MEDS ORDERED: HYDROcodone/acetaminophen 5mg/325mg tablet PO PRN (09:15)
[2020-12-16] MEDS ORDERED: normal saline 1000ml 1,000 ML IV ONE (09:20)
[2020-12-16] MEDS ORDERED: vancomycin/NS 1 GM ADD-VANTAGE 250 ML IV ONE (11:00)
== END 2020-12-16 14:00 | disposition home or self-care (01) ==
LOC: SSTAY O 06:04
PROVIDERS: ATTEND Internal Medicine Cardiovascular Disease
DX: Z45.010 Encounter for checking and testing of cardiac pacemaker pulse generator [battery] (principal); I48.91 Unspecified atrial fibrillation; I50.9 Heart failure, unspecified; N18.30 Chronic kidney disease, stage 3 unspecified; I08.1 Rheumatic disorders of both mitral and tricuspid valves; E78.5 Hyperlipidemia, unspecified; I27.20 Pulmonary hypertension, unspecified; D46.9 Myelodysplastic syndrome, unspecified; D64.9 Anemia, unspecified; Z85.038 Personal history of other malignant neoplasm of large intestine; Z90.49 Acquired absence of other specified parts of digestive tract; Z79.82 Long term (current) use of aspirin; Z79.899 Other long term (current) drug therapy; Z79.01 Long term (current) use of anticoagulants; Z90.710 Acquired absence of both cervix and uterus; Z98.890 Other specified postprocedural states; Z82.49 Family history of ischemic heart disease and other diseases of the circulatory system; Z80.9 Family history of malignant neoplasm, unspecified; Z88.0 Allergy status to penicillin
CPT/HCPCS: 33228; 36415; 80048; 85025; 85610; 85730; 93005; 99152; 99153; C1785; J0690; J2250; J3010; J3370; J3490; J7030; A4620; A6258; A6449